=== PATIENT | female | born 1970 | race Caucasian/White ===

== ENCOUNTER 2017-12-15 11:31 | Emergency (ER) | payer SELFPAY ==
[~2017-12-15] VITALS: Ht 172.7 cm; Wt 89.0 kg
[~2017-12-15 11:31] MED LIST: BACT800T5 PO; METH750T2 PO; MOBI15TA PO
[2017-12-15] MEDS ORDERED: CYCLOBENZAPRINE HCL 10 MG TAB PO ONE (12:00)
[2017-12-15] MEDS ORDERED: ACETAMINOPHEN/HYDROcodone 325 MG/5 MG TAB PO ONE (12:00)
[2017-12-15 12:03] VITALS: BP 154/75; PULSE 66; RESP 18; TEMP 98.5; O2SAT 98
--- NOTE | 2017-12-15 12:08 | PD ---
HPI Chief Complaint: Fall Time Seen by Provider: 11:44 Travel History International Travel<30 days: No Contact w/Intl Traveler<30days: No Traveled to known affect area: No History of Present Illness HPI The patient is a 47-year-old female who presents emergency department for neck pain. The patient has a history of previous cervical fusion that was performed by Dr. Hurley after a worker's comp accident. The patient had an anterior approach performed. Patient states she slipped and fell 3 days ago, now has neck pain bilaterally, notes when she uses right upper extremity she occasionally has numbness and tingling to the right trapezius. She also complains of pain located over the left aspect of the neck that radiates down the left arm. She does have a history of radiculopathy and left upper extremity cubital tunnel syndrome. She does note mild swelling just anterior to the left clavicle. She denied any LOC with the fall. She does complain of mild numbness and tingling to the third digit of the left hand. She denies any nausea, vomiting, or abdominal pain. She denies any lower extremity weakness or numbness. Symptoms are moderate, exacerbated after falling, there are no current alleviating factors. She does not currently have a primary physician. PFSH Past Medical History Asthma: Yes Cancer: No Cardiovascular Problems: No Diabetes: No Diminished Hearing: No Endocrine: No Genitourinary: No Hepatitis: No Hiatal Hernia: No Immune Disorder: No Kidney Stones: Yes Musculoskeletal: Yes (LOW BACK PAIN; NECK PAIN) Neurologic: Yes (NUMBNESS FINGERS LEFT HAND-NEUROPATHY) Psychiatric: Yes Reproductive: No Respiratory: Yes (HX ASTHMA) Immunizations Current: No Pneumonia: Yes Thyroid Disease: No Menopausal: Yes Tubal Ligation: Yes Past Surgical History Abdominal Surgery: Yes (EXP LAP HEMATOMA S/P 1996) AICD: No Body Medical Devices: NONE Section: Yes (x2) Gynecologic Surgery: Yes (CERCLAGE AND STOMACH HEMATOMA REPAIR S/P STOMACH INJURY) Joint Replacement: No Neurologic Surgery: Yes (NECK SURGERY) Pacemaker: No Other Surgery: Yes (CARPAL QUBITAL) Social History Alcohol Use: No Tobacco Use: Yes (1/2 ppd) Substance Use: No (DENIES) Allergies-Medications (Allergen,Severity, Reaction): Coded Allergies: shrimp (Unverified Allergy, Severe, Anaphylaxis, 05/19/17) codeine (Unverified Adverse Reaction, Mild, STOMACH ACHE, 05/19/17) Reported Meds & Prescriptions Reported Meds & Active Scripts Active No Active Prescriptions or Reported Medications Review of Systems Except as stated in HPI: all other systems reviewed are Neg HENT: Positive: Neck Pain, No: Headaches Cardiovascular: Positive: Chest Pain or Discomfort (left anterior chest wall pain of the clavicle with swelling) Respiratory: No: Shortness of Breath Gastrointestinal: No: Nausea, Vomiting Musculoskeletal: No: Weakness Neurologic: Positive: Paresthesia, Sensory Disturbance Physical Exam Narrative GENERAL: Awake, alert, pleasant 47-year-old female who appears her stated age and is in no acute respiratory distress. SKIN: Focused skin assessment warm/dry. HEAD: Atraumatic. Normocephalic. EYES: No injection or drainage. ENT: No nasal bleeding or discharge. Mucous membranes pink and moist. NECK: Trachea midline. No JVD. Transverse well-healed anterior scar. Mild swelling over the left paracervical and cervical cleidomastoid muscles. No tenderness of the clavicle. No midline tenderness. CARDIOVASCULAR: Regular rate and rhythm. No murmur appreciated. RESPIRATORY: No accessory muscle use. Clear to auscultation. Breath sounds equal bilaterally. MUSCULOSKELETAL: No obvious deformities. No clubbing. No cyanosis. No edema. [employer] strength bilateral 5 out of 5. The patient is able to a bili. NEUROLOGICAL: Awake and alert. No obvious cranial nerve deficits. Motor grossly within normal limits. Normal speech. Sensation is symmetric on the right upper extremity the radial, ulnar, median nerve distribution. Hand intrinsic muscles are intact. Left upper extremity notes mild decreased sensation over the volar aspect of the third digit, but present in the radial and ulnar distribution left upper extremity. Back: No tenderness over the thoracic or lumbar vertebrae. PSYCHIATRIC: Appropriate mood and affect; insight and judgment normal. Data Data Last Documented VS Vital Signs Date Time Temp Pulse Resp B/P (MAP) Pulse Ox O2 Delivery O2 Flow Rate FiO2 12/15/17 13:17 18 12/15/17 12:03 98.5 66 154/75 (101) [address] Cerv Spine W/O Contrast (12/15/17 ) Chest, Single Ap (12/15/17 ) Acetamin-Hydrocod 325-5 Mg (Essie 5-325 (12/15/17 12:00) Cyclobenzaprine (Flexeril) (12/15/17 12:00) [facility] Medical Decision Making Medical Screen Exam Complete: Yes Emergency Medical Condition: Yes Medical Record Reviewed: Yes Interpretation(s) Last Impressions Chest X-Ray 12/15/17 0000 Signed Impressions: Service Date/Time: Friday, December 15, 2017 12:41 - CONCLUSION: No acute disease. Sincere Burrell MD CT the cervical spine reveals no acute fracture. Previous fusion across C5/6/7 with anterior plate and screw fixation. No canal stenosis. Differential Diagnosis Differential diagnosis includes cervical fracture, cervical radiculopathy, cervical stenosis, herniated disc, soft tissue injury, radiculopathy. Narrative Course CT of the cervical spine was obtained. X-ray the chest was obtained. The patient was administered Essie and Flexeril by mouth. Chest x-rays unremarkable. CT of the cervical spine reveals postoperative changes but no acute fracture. The patient will be placed in a soft collar as needed, anti- inflammatories, muscle relaxers, pain medication as directed. She is advised to follow-up with a primary physician. Diagnosis Primary Impression: Neck pain, acute Patient Instructions: General Instructions Additional Instructions: Please provide a patient a copy of her x-ray and CT results at discharge. Medications as directed. Soft collar as needed. Follow-up with a primary physician. Med/Other Pt SpecificInfo: Prescription(s) given Scripts Hydrocodone-Acetaminophen (Essie) 5 Mg-325 Mg Tab 1 TAB PO Q6H Y for PAIN, #12 TAB 0 Refills Prov: Julien Godoy MD 12/15/17 Cyclobenzaprine (Flexeril) 10 Mg Tab 10 MG PO TID for Muscle Spasm, #30 TAB 0 Refills Prov: Julien Godoy MD 12/15/17 Ibuprofen (Ibuprofen) 600 Mg Tab 600 MG PO Q6H Y for Pain/Inflammation, #20 TAB 0 Refills Prov: Julien Godoy MD 12/15/17 Disposition: 01 DISCHARGE HOME Condition: Stable Julien Godoy MD Dec 15, 2017 12:07
--- NOTE | 2017-12-15 13:00 | RADRPT ---
EXAM DATE/TIME: 12/15/2017 12:41 [facility] COMPARISON: CHEST SINGLE AP, March 07, 2016, 9:00. INDICATIONS : Chest discomfort; fall 3 days ago. MEDICAL HISTORY : Asthma. SURGICAL HISTORY : None. ENCOUNTER: Initial ACUITY: 3 days PAIN SCORE: 9/10 LOCATION: Bilateral chest FINDINGS: A single view of the chest demonstrates the lungs to be symmetrically aerated without evidence of mas s, infiltrate or effusion. The cardiomediastinal contours are unremarkable. Osseous structures are intact. CONCLUSION: No acute disease. Sincere Burrell MD on December 15, 2017 at 12:58 Board Certified Radiologist. This report was verified electronically.
[2017-12-15 13:17] VITALS: RESP 18
--- NOTE | 2017-12-15 13:28 | RADRPT ---
EXAM DATE/TIME: 12/15/2017 12:53 [facility] COMPARISON: None. INDICATIONS : <<Fell a few days ago and now has pain radiaiting down left arm.>> RADIATION DOSE: <<25.72>> CTDIvol (mGy) MEDICAL HISTORY : None SURGICAL HISTORY : Fusion, cervical. section.Tubal ligation.Stomach surgery. ENCOUNTER: Initial ACUITY: 4 - 6 days PAIN SCALE: 4/10 LOCATION: Left neck TECHNIQUE: Volumetric scanning of the cervical spine was performed. Multiplanar reconstructions in the sagittal, coronal and oblique axial planes were performed. Using automated exposure control and adjustment o f the mA and/or kV according to patient size, radiation dose was kept as low as reasonably achievable to obtain optimal diagnostic quality images. DICOM format image data is available electronically f or review and comparison. FINDINGS: VERTEBRAE: Normal vertebral body height. ALIGNMENT: No evidence of subluxation. C2-C3: The bony spinal canal is normal in size. No evidence of disc bulge or herniation. The neural forami na are bilaterally patent. C3-C4: The bony spinal canal is normal in size. No evidence of disc bulge or herniation. The neural forami na are bilaterally patent. C4-C5: The bony spinal canal is normal in size. No evidence of disc bulge or herniation. The neural forami na are bilaterally patent. C5-C6: The bony spinal canal is normal in size. No evidence of disc bulge or herniation. The neural forami na are bilaterally patent. C6-C7: The bony spinal canal is normal in size. No evidence of disc bulge or herniation. The neural forami na are bilaterally patent. C7-T1: The bony spinal canal is normal in size. No evidence of disc bulge or herniation. The neural forami na are bilaterally patent. CONCLUSION: 1. No acute fracture. Previous fusion across C5-6-7 with anterior plate and screw fixation. No canal stenosis. Glynn Dyson MD on December 15, 2017 at 13:10 Board Certified Radiologist. This report was verified electronically.
[2017-12-15] MEDS ORDERED: CYCL10TA PO (13:34)
[2017-12-15] MEDS ORDERED: NORC5TAB PO (13:34)
[2017-12-15] MEDS ORDERED: IBUP-232 PO (13:34)
== END 2017-12-15 14:07 | disposition home or self-care (01) ==
LOC: PHEFT 11:31
DX: M54.2 Cervicalgia (principal); R20.0 Anesthesia of skin; J45.909 Unspecified asthma, uncomplicated; F17.210 Nicotine dependence, cigarettes, uncomplicated; W01.0XXA Fall on same level from slipping, tripping and stumbling without subsequent striking against object, initial encounter
CPT/HCPCS: 71045; 72125; 99284